=== PATIENT | male | born 1975 | race Two or more races ===

== ENCOUNTER 2019-07-24 22:20 | Emergency (ER) | payer SELFPAY ==
[~2019-07-24] VITALS: Ht 172.7 cm; Wt 75.0 kg
[2019-07-24] MEDS ORDERED: ONDANSETRON HCL 4MG/2ML INJ IV STA (23:48)
[2019-07-24] MEDS ORDERED: SODIUM CHLORIDE 0.9% 1,000 ML IV ONE (23:48)
[2019-07-25 00:38] LABS: HEMATOCRIT. 46.6 % (42.0-52.0); HEMOGLOBIN. 16.3 g/dL (14.0-18.0); MEAN CORPUSCULAR HEMOGLOBIN 32.2 pg (28.0-32.0); MEAN CORPUSCULAR VOLUME 92.3 fL (80.0-94.0); MEAN PLATELET VOLUME 8.3 fl (7.4-10.4); PLATELET 134 x1000/uL (130-400); RED BLOOD CELL COUNT 5.05 mill/uL (4.7-6.1); RED CELL DISTRIBUTION WIDTH 13.4 % (11.6-14.6)
[2019-07-25 00:41] LABS: CHLORIDE 109 mEq/L (98-107)
[2019-07-25 00:55] LABS: ETHANOL BLOOD 407 mg/dL
[2019-07-25 01:01] LABS: PLATELET ESTIMATE NORMAL
[2019-07-25 02:03] LABS: *BARBITURATES SCREEN URINE NEGATIVE (NEGATIVE)
[2019-07-25 02:04] LABS: *AMPHETAMINES SCREEN URINE NEGATIVE (NEGATIVE); *BENZODIAZEPINES SCREEN URINE NEGATIVE (NEGATIVE); *COCAINE SCREEN URINE NEGATIVE (NEGATIVE); CANNABINOID URINE SCREEN NEGATIVE (NEGATIVE); METHADONE URINE SCREEN NEGATIVE (NEGATIVE); OPIATES URINE SCREEN NEGATIVE (NEGATIVE); PHENCYCLIDINE URINE SCREEN NEGATIVE (NEGATIVE)
[2019-07-25 06:56] VITALS: BP 124/71
== END 2019-07-25 06:57 | disposition home or self-care (01) ==
LOC: ER 22:20
DX: T51.91XA Toxic effect of unspecified alcohol, accidental (unintentional), initial encounter (principal); G92 Toxic encephalopathy; Y92.89 Other specified places as the place of occurrence of the external cause
CPT/HCPCS: 36415; 80053; 80305; 80320; 85025; 93005; 96361; 96374; 99284; J2405; J7030; Z7610; G0480